=== PATIENT | female | born 1985 | race Caucasian/White ===

== ENCOUNTER 2021-02-24 15:36 | Emergency (ER) | payer OTHER ==
[2021-02-24 16:00] VITALS: BP 125/75; PULSE 74; TEMP 99; BMI 39.3
== END 2021-02-24 16:16 | disposition home or self-care (01) ==
LOC: FER 15:36
DX: N61.1 Abscess of the breast and nipple (principal)
CPT/HCPCS: 87070; 87205; 99284-25

== ENCOUNTER 2021-10-31 22:19 | Emergency (ER) | payer OTHER ==
[2021-10-31 22:48] VITALS: BP 145/94; PULSE 99; TEMP 98; BMI 39.3
[2021-11-02 09:07] LABS: SARS-CoV-2 NAA Not Detected (Not Detected)
== END 2021-10-31 23:56 | disposition home or self-care (01) ==
LOC: FER 22:19
DX: R06.00 Dyspnea, unspecified (principal)
CPT/HCPCS: 87804; 99283-25; C9803; U0003; U0005

== ENCOUNTER 2022-02-13 14:43 | Observation (INO) | payer OTHER ==
[2022-02-13 15:49] LABS: ALBUMIN 3.7 g/dl (3.4-5.0); BILIRUBIN,TOTAL 0.5 mg/dl (0.2-1); CALCIUM 9.2 mg/dl (8.5-10); CREATININE 0.7 mg/dl (0.55-1.3)
[2022-02-13 16:48] VITALS: BMI 42.6
[2022-02-13 17:02] LABS: BASO % 0.3 % (0-2.0); EOS % 2.5 % (0-4.5); HEMATOCRIT 42.7 % (32.4-45.2); HEMOGLOBIN 14.3 GM/dL (10.7-15.3); LYMPH % 35.5 % (8-40); MCHC 33.5 g/dl (32.0-36.0); MEAN CELL VOLUME 89.6 fl (80-96); MEAN PLT VOLUME 8.5 fl (7.5-11.1); MONO % 5.9 % (3.8-10.2); NEUT % 55.8 % (42.8-82.8); PLATELET COUNT 246 10^3/uL (134-434); RBC 4.77 M/mm3 (3.60-5.2); WHITE BLOOD COUNT 8.7 K/mm3 (4.0-10.0)
[2022-02-13] MEDS ORDERED: ENOXAPARIN NA (PORCINE) 100 MG/1 ML DISP.SYRIN SQ ONE ×2 (17:06→17:22)
[2022-02-14 02:20] LABS: INR 1.03 (0.83-1.09); PROTHROMBIN TIME (PATIENT) 11.8 SEC (9.7-13.0)
[2022-02-14] MEDS: ENOXAPARIN NA (PORCINE) 100 MG/1 ML DISP.SYRIN SQ SCH ×2 (06:21→17:41)
[2022-02-14 09:02] LABS: ALBUMIN 3.5 g/dl (3.4-5.0); BILIRUBIN,TOTAL 0.6 mg/dl (0.2-1); CREATININE 0.8 mg/dl (0.55-1.3); TOT PROT 6.6 g/dl (6.4-8.2)
[2022-02-14] MEDS ORDERED: DULoxetine HCL 30 MG CAPSULE.DR PO SCH (10:00)
[2022-02-14 10:01] LABS: BASO % 0.3 % (0-2.0); EOS % 3.3 % (0-4.5); HEMATOCRIT 43.2 % (32.4-45.2); HEMOGLOBIN 14.2 GM/dL (10.7-15.3); LYMPH % 44.7 % (8-40); MCH 29.8 pg (25.7-33.7); MCHC 32.9 g/dl (32.0-36.0); MEAN CELL VOLUME 90.3 fl (80-96); MEAN PLT VOLUME 8.8 fl (7.5-11.1); MONO % 5.3 % (3.8-10.2); NEUT % 46.4 % (42.8-82.8); PLATELET COUNT 226 10^3/uL (134-434); RBC 4.79 M/mm3 (3.60-5.2); RDW 14.1 % (11.6-15.6); WHITE BLOOD COUNT 8.1 K/mm3 (4.0-10.0)
[2022-02-14] MEDS ORDERED: BUPRENORPHINE HCL 150 MCG FILM BC SCH (16:45)
[2022-02-14] MEDS: PREGABALIN 100 MG CAPSULE PO SCH (17:39)
[2022-02-14] MEDS: morphine SULFATE IMMEDIATE RELEASE 30 MG TAB PO PRN ×2 (17:39→22:13)
[2022-02-14] MEDS: DULoxetine HCL 30 MG CAPSULE.DR PO SCH (22:03)
[2022-02-15] MEDS ORDERED: ACETAMINOPHEN 1000 MG/100 ML BAG IVPB ONE (00:23)
[2022-02-15] MEDS: ENOXAPARIN NA (PORCINE) 100 MG/1 ML DISP.SYRIN SQ SCH ×2 (06:40→18:42)
[2022-02-15] MEDS: PREGABALIN 100 MG CAPSULE PO SCH (09:51)
[2022-02-15] MEDS: morphine SULFATE IMMEDIATE RELEASE 30 MG TAB PO PRN ×3 (09:57→21:45)
[2022-02-15] MEDS ORDERED: RIVAROXABAN 15 MG TABLET PO ONE (18:29)
[2022-02-15] MEDS: DULoxetine HCL 30 MG CAPSULE.DR PO SCH (21:45)
[2022-02-16] MEDS: morphine SULFATE IMMEDIATE RELEASE 30 MG TAB PO PRN ×2 (06:03→10:44)
[2022-02-16] MEDS ORDERED: RIVAROXABAN 15 MG TABLET PO SCH (08:00)
[2022-02-16] MEDS: PREGABALIN 100 MG CAPSULE PO SCH (09:13)
[2022-02-16 09:17] VITALS: BP 108/67; PULSE 60; TEMP 98.1
[2022-02-16 09:44] LABS: ALBUMIN 3.4 g/dl (3.4-5.0); BILIRUBIN,TOTAL 0.6 mg/dl (0.2-1); CREATININE 0.7 mg/dl (0.55-1.3); TOT PROT 6.5 g/dl (6.4-8.2)
[2022-02-16 10:35] LABS: HEMATOCRIT 44.2 % (32.4-45.2); MCH 30.6 pg (25.7-33.7); MCHC 33.9 g/dl (32.0-36.0); MEAN CELL VOLUME 90.3 fl (80-96); MEAN PLT VOLUME 8.6 fl (7.5-11.1); PLATELET COUNT 241.1 10^3/uL (134-434); RDW 14.3 % (11.6-15.6); WHITE BLOOD COUNT 8.1 10^3/uL (4.0-10.8)
== END 2022-02-16 12:32 | disposition home or self-care (01) ==
LOC: FER 14:43 → FM/S 16:47 → INTOOBSV 16:47 → UNDOADMOB 16:47 → INTOOBSV 02-14 11:10 → OBSVTOIN 02-14 11:10 → FM/S 02-14 11:10 → UNDOADMOB 02-14 11:10 → FM/S 02-14 12:33
PROVIDERS: ADMIT Internal Medicine; ATTEND Nurse Practitioner Acute Care
PROC: 3E023GC Introduction of Other Therapeutic Substance into Muscle, Percutaneous Approach (ICD-10-PCS; principal; 2022-02-14)
PROC: 3E023NZ Introduction of Analgesics, Hypnotics, Sedatives into Muscle, Percutaneous Approach (ICD-10-PCS; 2022-02-14)
DX: I26.94 Multiple subsegmental thrombotic pulmonary emboli without acute cor pulmonale (principal); M79.7 Fibromyalgia; Z91.14 Patient's other noncompliance with medication regimen; G89.29 Other chronic pain; E66.01 Morbid (severe) obesity due to excess calories; M54.9 Dorsalgia, unspecified; Z87.898 Personal history of other specified conditions; Z68.41 Body mass index [BMI] 40.0-44.9, adult; F17.210 Nicotine dependence, cigarettes, uncomplicated; Z29.8 Encounter for other specified prophylactic measures
CPT/HCPCS: 36415; 71275-TC; 80053; 83735; 84703; 85025; 85610; 87804; 93005; 93306-TC; 93970-TC; 94761; 96372; 96374; 99285-25; C9803-CS; G0378; Q9967; U0003; U0005

== ENCOUNTER 2022-05-09 15:44 | Emergency (ER) | payer OTHER ==
[2022-05-09 16:31] VITALS: BP 146/94; PULSE 89; TEMP 98.2; BMI 36.6
[2022-05-09] MEDS ORDERED: ONDANSETRON *ODT* 4 MG TABLET SL ONE (18:00)
[2022-05-09] MEDS ORDERED: ONDANSETRON *ODT* 4 MG TABLET ONE (18:03)
== END 2022-05-09 19:00 | disposition home or self-care (01) ==
LOC: FER 15:44
DX: S06.0X1A Concussion with loss of consciousness of 30 minutes or less, initial encounter (principal); W07.XXXA Fall from chair, initial encounter
CPT/HCPCS: 70450-TC; 70486-TC; 72125-TC; 73560-TC-LT-FY; 73560-TC-RT-FY; 99285-25; Q0162